=== PATIENT | male | born 1950 | race Caucasian/White ===

== ENCOUNTER 2018-12-01 09:12 | Outpatient (CLI) | payer OTHER ==
[~2018-12-01 09:12] MED LIST: ANDROGEL5 GM; AVODART0.5 MG; COZAAR50 MG
== END 2018-12-01 09:18 | disposition home or self-care (01) ==
LOC: TOM 09:12
DX: K56.50 Intestinal adhesions [bands], unspecified as to partial versus complete obstruction (principal); Z12.11 Encounter for screening for malignant neoplasm of colon

== ENCOUNTER 2019-08-13 10:11 | Outpatient (CLI) | payer OTHER | END 2019-08-13 10:13 | disposition home or self-care (01) | LOC: NUCLEAR 10:11 | PROVIDERS: ATTEND Internal Medicine Cardiovascular Disease | DX: I80.293 Phlebitis and thrombophlebitis of other deep vessels of lower extremity, bilateral (principal) ==